=== PATIENT | female | born 1990 | race American Indian/Alaskan Native ===

== ENCOUNTER 2018-04-20 09:03 | Emergency (ER) | payer SELFPAY ==
[2018-04-20 09:11] VITALS: BP 138/86
[2018-04-20 09:50] LABS: Basophils % (Auto) 0.6 % (0.0-1.8); Eosinophils # (Auto) 0.1 K/mm3 (0.0-0.4); Eosinophils % (Auto) 1.5 % (0.0-4.3); Hematocrit 42.3 % (30.3-42.9); Hemoglobin 13.7 gm/dl (10.1-14.3); Lymphocytes # (Auto) 2.3 K/mm3 (1.2-5.4); Lymphocytes % (Auto) 30.1 % (13.4-35.0); Mean Corpuscular HGB Conc 32 % (30-34); Mean Corpuscular Hemoglobin 29 pg (28-32); Mean Corpuscular Volume 89 fl (79-97); Monocytes # (Auto) 0.6 K/mm3 (0.0-0.8); Monocytes % (Auto) 7.9 % (0.0-7.3); Platelet Count 273 K/mm3 (140-440); Red Blood Count 4.78 M/mm3 (3.65-5.03); Red Cell Distribution Width 14.4 % (13.2-15.2)
[2018-04-20 10:10] LABS: Alanine Aminotransferase 11 units/L (7-56); Albumin 4.2 g/dL (3.9-5); BUN/Creatinine Ratio 14; Blood Urea Nitrogen 10 mg/dL (7-17); Calcium 8.7 mg/dL (8.4-10.2); Hemolysis Index 5
--- NOTE | 2018-04-20 10:56 | Emergency Department Report ---
ED Abdominal Pain HPI - General Chief Complaint: Abdominal Pain Stated Complaint: SEVERE ABD PAIN Time Seen by Provider: 04/20/18 10:52 Source: patient Mode of arrival: Ambulatory Limitations: No Limitations - History of Present Illness Initial Comments: Patient reports nausea/vomiting, lower abdominal pain with decrease appetite that started one week ago. However the nausea and vomiting has resolved MD Complaint: abdominal pain Onset/Timin -: week(s) Location: LLQ, RLQ, epigastric (burning), suprapubic Radiation: none Migration to: no migration Severity: severe Severity scale (0 -10): 9 Quality: aching Consistency: constant Improves With: rest Worsens With: movement Context: other (none) Associated Symptoms: denies: nausea, vomiting, diarrhea, fever, chills, constipation, dysuria, hematemesis, hematochezia, melena, hematuria, anorexia, syncope Treatments Prior to Arrival: other (none) - Related Data LMP Date: 03/28/17 (Mirena IUD) Previous Rx's Medication Instructions Recorded Last Taken Type Famotidine [Pepcid] 20 mg PO BID #20 tablet 04/20/18 Unknown Rx Naproxen 375 mg PO BID #20 tablet. 04/20/18 Unknown Rx Allergies Allergy/AdvReac Type Severity Reaction Status Date / Time No Known Allergies Allergy Unverified 04/20/18 09:08 ED Review of Systems ROS: Stated complaint: SEVERE ABD PAIN Other details as noted in HPI Constitutional: denies: chills, fever Eyes: denies: eye pain, eye discharge, vision change ENT: denies: ear pain, throat pain Respiratory: denies: cough, shortness of breath, wheezing Cardiovascular: denies: chest pain, palpitations Endocrine: no symptoms reported Gastrointestinal: abdominal pain. denies: nausea, vomiting, diarrhea, constipation, hematemesis, melena, hematochezia Genitourinary: denies: urgency, dysuria, discharge Musculoskeletal: denies: back pain, joint swelling, arthralgia Skin: denies: rash, lesions Neurological: denies: headache, weakness, paresthesias Psychiatric: denies: anxiety, depression Hematological/Lymphatic: denies: easy bleeding, easy bruising ED Past Medical Hx - Past Medical History Previous Medical History?: Yes Hx Asthma: Yes - Surgical History Past Surgical History?: Yes Additional Surgical History: Trachea surgery - Social History Smoking Status: Current Every Day Smoker Substance Use Type: Alcohol, Marijuana - Medications Home Medications: Home Medications Medication Instructions Recorded Confirmed Last Taken Type Famotidine [Pepcid] 20 mg PO BID #20 tablet 04/20/18 Unknown Rx Naproxen 375 mg PO BID #20 tablet. 04/20/18 Unknown Rx ED Physical Exam - General Limitations: No Limitations General appearance: alert, in no apparent distress - Head Head exam: Present: atraumatic, normocephalic - Eye Eye exam: Present: normal appearance - ENT ENT exam: Present: mucous membranes moist - Neck Neck exam: Present: normal inspection - Respiratory Respiratory exam: Present: normal lung sounds bilaterally. Absent: respiratory distress, wheezes, rales, rhonchi, stridor, chest wall tenderness, accessory muscle use, decreased breath sounds - Cardiovascular Cardiovascular Exam: Present: regular rate, normal rhythm, normal heart sounds. Absent: systolic murmur, diastolic murmur, rubs, gallop - GI/Abdominal GI/Abdominal exam: Present: soft, tenderness (RLQ, Suprapubic and LLQ), normal bowel sounds - Expanded GI/Abdominal Exam Expanded GI/Abdominal exam: Absent: psoas sign, obturator sign, heel tap sign, Blancas's sign, Rovsing's sign, tenderness at Mcburney's Point, ascites - Rectal Rectal exam: Present: deferred - Extremities Exam Extremities exam: Present: normal inspection, full ROM, normal capillary refill - Back Exam Back exam: Present: normal inspection, full ROM. Absent: tenderness, CVA tenderness (R), CVA tenderness (L), muscle spasm, paraspinal tenderness, vertebral tenderness - Neurological Exam Neurological exam: Present: alert, oriented X3 - Psychiatric Psychiatric exam: Present: normal affect, normal mood - Skin Skin exam: Present: warm, dry, intact, normal color. Absent: rash ED Course Vital Signs 04/20/18 04/20/18 09:08 11:02 Temperature 98.3 F Pulse Rate 75 Respiratory 18 20 Rate Blood Pressure 138/86 O2 Sat by Pulse 98 Oximetry - Reevaluation(s) Reevaluation #1: 04/20/18 10:58 laboratory and imaging studies ordered ED Medical Decision Making - Lab Data Result diagrams: 04/20/18 09:23 04/20/18 09:23 Temp Pulse Resp BP Pulse Ox 98.3 F 75 20 138/86 98 04/20/18 09:08 04/20/18 09:08 04/20/18 11:02 04/20/18 09:08 04/20/18 09:08 Lab Results 04/20/18 04/20/18 04/20/18 Range/Units 09:23 09:23 09:24 WBC 7.5 (4.5-11.0) K/mm3 RBC 4.78 (3.65-5.03) M/mm3 Hgb 13.7 (10.1-14.3) gm/dl Hct 42.3 (30.3-42.9) % MCV 89 (79-97) fl MCH 29 (28-32) pg MCHC 32 (30-34) % RDW 14.4 (13.2-15.2) % Plt Count 273 (140-440) K/mm3 Lymph % (Auto) 30.1 (13.4-35.0) % [place] % (Auto) 7.9 H (0.0-7.3) % Eos % (Auto) 1.5 (0.0-4.3) % Baso % (Auto) 0.6 (0.0-1.8) % Lymph # 2.3 (1.2-5.4) K/mm3 Kimble # 0.6 (0.0-0.8) K/mm3 Eos # 0.1 (0.0-0.4) K/mm3 Baso # 0.0 (0.0-0.1) K/mm3 Seg Neutrophils % 59.9 (40.0-70.0) % Seg Neutrophils # 4.5 (1.8-7.7) K/mm3 Sodium 139 (137-145) mmol/L Potassium 4.1 (3.6-5.0) mmol/L Chloride 102.6 (98-107) mmol/L Carbon Dioxide 26 (22-30) mmol/L Anion Gap 15 mmol/L BUN 10 (7-17) mg/dL Creatinine 0.7 (0.7-1.2) mg/dL Estimated GFR > 60 ml/min BUN/Creatinine Ratio 14 % Glucose 88 (65-100) mg/dL Calcium 8.7 (8.4-10.2) mg/dL Total Bilirubin 0.30 (0.1-1.2) mg/dL AST 12 (5-40) units/L ALT 11 (7-56) units/L Alkaline Phosphatase 52 (35-129) units/L Total Protein 7.2 (6.3-8.2) g/dL Albumin 4.2 (3.9-5) g/dL Albumin/Globulin Ratio 1.4 % Urine Color Yellow (Yellow) Urine Turbidity Clear (Clear) Urine pH 5.0 (5.0-7.0) Ur Specific [place] 1.032 H (1.003-1.030) Urine Protein 30 mg/dl (Negative) mg/dL Urine Glucose (UA) Neg (Negative) mg/dL Urine Ketones Neg (Negative) mg/dL Urine Blood Neg (Negative) Urine Nitrite Neg (Negative) Urine Bilirubin Neg (Negative) Urine Urobilinogen < 2.0 (<2.0) mg/dL Ur Leukocyte Esterase Neg (Negative) Urine WBC (Auto) 1.0 (0.0-6.0) /HPF Urine RBC (Auto) 2.0 (0.0-6.0) /HPF U Epithel Cells (Auto) 11.0 (0-13.0) /HPF Urine Bacteria (Auto) 1+ (Negative) /HPF Urine Mucus 3+ /HPF Urine HCG, Qual Negative (Negative) - Radiology Data Radiology results: image reviewed NICAL: Lower abdominal pain. COMPARISON: None. TECHNIQUE: Volumetric acquisition and 1.25 millimeter scan reconstructions after the uneventful intravenous injection of 100 cc Omnipaque 300. Consent was obtained prior to the administration of contrast. Oral contrast was not given. FINDINGS: Abdomen: The lung bases are clear.Normal liver, bile ducts and gallbladder. Normal stomach, duodenum, pancreas and spleen. Normal adrenal glands and kidneys. The renal collecting systems and ureters are nondilated. No renal calculus, mass or cyst. Normal aorta and inferior vena cava. Normal small bowel.Normal ascending, transverse and descending colon. The terminal ileum and appendix are normal. No mass, lymphadenopathy or ascites.No pneumoperitoneum. Pelvis: Normal urinary bladder.Normal uterus with an IUD. Normal ovaries. No adnexal mass or free fluid. Normal rectum and sigmoid colon.. Bone windows demonstrate no bone lesion. IMPRESSION: Normal study. - Medical Decision Making During the course of ED, analgesic, laboratory and radiology studies were ordered. The CT Scan revealed normal study. The patient's abdominal pain prior to discharge went from a 10 to a 4 after the administration of Toradol 30 mg intravenous. She was sent home with prescriptions for Pepcid and Naproxen, instructed to follow up at the local health department or PCP. She verbalized understanding - Differential Diagnosis Abdominal Pain, Appendicitis, UTI, Colonitis, STD Critical care attestation.: If time is entered above; I have spent that time in minutes in the direct care of this critically ill patient, excluding procedure time. ED Disposition Clinical Impression: Abdominal pain Qualifiers: Abdominal location: lower abdomen, unspecified Qualified Code(s): R10.30 - Lower abdominal pain, unspecified Disposition: TO HOME OR SELFCARE Is pt being admited?: No Does the pt Need Aspirin: No Condition: Stable Instructions: Abdominal Pain (ED) Additional Instructions: Take medication as directed. Follow up with the selective referral given at discharge Prescriptions: Famotidine [Pepcid] 20 mg PO BID #20 tablet Naproxen 375 mg PO BID #20 tablet. Referrals: PRIMARY CAREMD [Primary Care Provider] - 3-5 Days [facility] [Outside] - 3-5 Days [facility] [Outside] - 3-5 Days MARQUISE CARBALLO MD [Staff Physician] - 3-5 Days Forms: Work/School Release Form(ED) Time of Disposition: 12:23
[2018-04-20 11:13] LABS: Bacteria,Urine 1+ /HPF (Negative); Bilirubin,Urine NEG (Negative); Blood,Urine NEG (Negative); Color,Urine Yellow (Yellow); HCG Qualitative,Urine Negative (Negative); Mucus,Urine 3+ /HPF; Urobilinogen,Urine < 2.0 mg/dL (<2.0)
[2018-04-20] MEDS ORDERED: TORADOL IV ONE (11:16)
--- NOTE | 2018-04-20 11:59 | Cat Scan Report ---
CT ABDOMEN AND PELVIS WITH CONTRAST: 04/20/18 09:03:00 CLINICAL: Lower abdominal pain. COMPARISON: None. TECHNIQUE: Volumetric acquisition and 1.25 millimeter scan reconstructions after the uneventful intravenous injection of 100 cc Omnipaque 300. Consent was obtained prior to the administration of contrast. Oral contrast was not given. FINDINGS: Abdomen: The lung bases are clear.Normal liver, bile ducts and gallbladder. Normal stomach, duodenum, pancreas and spleen. Normal adrenal glands and kidneys. The renal collecting systems and ureters are nondilated. No renal calculus, mass or cyst. Normal aorta and inferior vena cava. Normal small bowel.Normal ascending, transverse and descending colon. The terminal ileum and appendix are normal. No mass, lymphadenopathy or ascites.No pneumoperitoneum. Pelvis: Normal urinary bladder.Normal uterus with an IUD. Normal ovaries. No adnexal mass or free fluid. Normal rectum and sigmoid colon.. Bone windows demonstrate no bone lesion. IMPRESSION: Normal study.
== END 2018-04-20 12:37 | disposition home or self-care (01) ==
LOC: ED 09:03
DX: R10.32 Left lower quadrant pain (principal); R10.31 Right lower quadrant pain; R10.30 Lower abdominal pain, unspecified; J45.909 Unspecified asthma, uncomplicated; F17.200 Nicotine dependence, unspecified, uncomplicated; F12.10 Cannabis abuse, uncomplicated
CPT/HCPCS: 36415; 74177; 80053; 81001; 81025; 85025; 96374; 99284; J1885; Q9967